=== PATIENT | female | born 1940 | race Hispanic/Latino ===

== ENCOUNTER → 2017-08-02 | Outpatient (CLI) | payer MEDICARE ==
[~2017-08-02] MED LIST: CHOL200013 PO; CYAN1TAB44 PO; GADOBENATE DIMEGLUMINE 10 ML IV ONE; MAG1CAPS5 PO; MAGN500C15 PO; MELO-106 PO; OMEP40CA37 PO; ROSU5TAB18 PO; SIME125C PO
== END | disposition home or self-care (01) ==
LOC: RAH 07:36
PROVIDERS: ATTEND Internal Medicine Gastroenterology
DX: C55 Malignant neoplasm of uterus, part unspecified (principal); K85.90 Acute pancreatitis without necrosis or infection, unspecified; K76.89 Other specified diseases of liver; N28.1 Cyst of kidney, acquired; K80.50 Calculus of bile duct without cholangitis or cholecystitis without obstruction
CPT/HCPCS: 74183; A9577

== ENCOUNTER → 2017-11-04 | Outpatient (CLI) | payer MEDICARE ==
[~2017-11-04] MED LIST changes: -GADOBENATE DIMEGLUMINE 10 ML IV ONE; +ROSU5TAB11 PO; -ROSU5TAB18 PO
== END | disposition home or self-care (01) ==
LOC: RAH 09:57
PROVIDERS: ATTEND Internal Medicine Gastroenterology
DX: K85.90 Acute pancreatitis without necrosis or infection, unspecified (principal); R93.2 Abnormal findings on diagnostic imaging of liver and biliary tract
CPT/HCPCS: 76700

== ENCOUNTER 2018-01-07 07:34 | Day surgery (SDC) | payer MEDICARE ==
[~2018-01-07] VITALS: Ht 152.4 cm; Wt 45.5 kg
[~2018-01-07 07:34] MED LIST changes: -MELO-106 PO; -SIME125C PO; +SODIUM CHLORIDE 0.9% 1000ML 1,000 ML IV ONE
[2018-01-07 08:06] VITALS: BP 98/52
[2018-01-07] MEDS ORDERED: PROPOFOL 10 MG/ML 20ML VIAL IV ONE (09:23)
[2018-01-07 09:41] VITALS: BP 85/35
== END 2018-01-07 10:10 | disposition home or self-care (01) ==
LOC: DAH 07:34 → ENDO 07:34
PROVIDERS: ATTEND Internal Medicine
DX: K31.89 Other diseases of stomach and duodenum (principal); E78.4 Other hyperlipidemia; I10 Essential (primary) hypertension; E78.5 Hyperlipidemia, unspecified; M19.90 Unspecified osteoarthritis, unspecified site; M81.0 Age-related osteoporosis without current pathological fracture; Z90.49 Acquired absence of other specified parts of digestive tract; Z98.49 Cataract extraction status, unspecified eye
CPT/HCPCS: 43237; 93005; A4606; J2704; J7030; 43231

== ENCOUNTER 2018-04-12 17:48 | Inpatient (IN) | payer MEDICARE ==
[~2018-04-12] VITALS: Ht 152.4 cm; Wt 45.9 kg
[~2018-04-12 17:48] MED LIST changes: -SODIUM CHLORIDE 0.9% 1000ML 1,000 ML IV ONE
[2018-04-12 18:50] LABS: CREATININE 0.7 mg/dL (0.5-1.5); POTASSIUM 4.1 mmol/L (3.5-5.1)
[2018-04-12 18:55] LABS: ALBUMIN 3.7 g/dL (3.5-5.0); BILIRUBIN,TOTAL 0.5 mg/dL (0.2-1.0); TOTAL PROTEIN, SERUM 7.3 g/dL (6.0-8.3)
[2018-04-12 19:22] LABS: BASOPHILS % (AUTO) 0.4 % (0.0-5.0); EOSINOPHILS % (AUTO) 0.2 % (0.0-8.0); HEMATOCRIT 38.6 % (36-48); LYMPHOCYTES % (AUTO) 22.8 % (21.0-51.0); MEAN CORPUSCULAR HEMOGLOBIN 25.9 pg (27.0-33.0); MEAN CORPUSCULAR HGB CONC 32.5 g/dL (32.0-36.0); MEAN CORPUSCULAR VOLUME 79.6 fL (79-99); MONOCYTES % (AUTO) 3.4 % (3.0-13.0); NEUTROPHILS % (AUTO) 73.2 % (40.0-77.0); PLATELET COUNT (AUTO) 178 K/uL (130-400); RED BLOOD CELL COUNT(AUTO) 4.85 MIL/uL (4.00-5.50); RED CELL DISTRIBUTION WIDTH 17.1 % (11.0-15.5); WHITE BLOOD COUNT (AUTO) 8.5 K/uL (4.8-10.8)
[2018-04-12] MEDS ORDERED: SODIUM CHLORIDE 0.9% 1000ML 1,000 ML IV ONE ×2 (19:43→22:28)
[2018-04-12] MEDS ORDERED: MORPHINE SULFATE 4 MG/1ML SYG ONE ×2 (19:43→22:29)
[2018-04-12] MEDS ORDERED: ONDANSETRON HCL 4 MG/2 ML VIAL ONE (19:43)
[2018-04-12] MEDS ORDERED: IOHEXOL-350 75 ML VIAL IV ONE (19:49)
[2018-04-12 20:59] LABS: APPEARANCE,URINE Clear (CLEAR); BILIRUBIN,URINE Negative (NEGATIVE); COLOR,URINE Yellow (YELLOW); GLUCOSE, URINE (UA) Negative (NEGATIVE); KETONES,URINE Trace mg/dL (NEGATIVE); LEUKOCYTE ESTERASE ,URINE Small (NEGATIVE); NITRATE,URINE Negative (NEGATIVE); OCCULT BLOOD,URINE Negative (NEGATIVE); PROTEIN,URINE Negative (NEGATIVE); UROBILINOGEN,URINE 0.2 mg/dL (0.2-1.0)
[2018-04-12 21:15] LABS: BACTERIA,URINE None Seen /HPF (None Seen); RBC,URINE None Seen /HPF (0-1); SQUAMOUS EPITHELIAL CELL,UR None Seen /HPF (0-2); WBC,URINE 0-1 /HPF (0-1)
[2018-04-12] MEDS: SODIUM CHLORIDE 0.9% 1000ML 1,000 ML IV SCH (22:00)
[2018-04-12] MEDS ORDERED: ONDANSETRON HCL 4 MG/2 ML VIAL IVP PRN (22:00)
[2018-04-12] MEDS ORDERED: MORPHINE SULFATE 4 MG/1ML SYG IVP PRN (22:00)
[2018-04-12] MEDS ORDERED: SODIUM CHLORIDE 0.9% 10 ML VIAL IVP PRN (22:00)
[2018-04-13] VITALS (7 sets, daily range): BP systolic 109–135; BP diastolic 51–71
[2018-04-13 04:55] LABS: BASOPHILS % (AUTO) 0.3 % (0.0-5.0); HEMATOCRIT 37.5 % (36-48); LYMPHOCYTES % (AUTO) 12.2 % (21.0-51.0); MEAN CORPUSCULAR HEMOGLOBIN 25.8 pg (27.0-33.0); MEAN CORPUSCULAR HGB CONC 32.5 g/dL (32.0-36.0); MEAN CORPUSCULAR VOLUME 79.4 fL (79-99); MONOCYTES % (AUTO) 3.6 % (3.0-13.0); NEUTROPHILS % (AUTO) 83.9 % (40.0-77.0); PLATELET COUNT (AUTO) 170 K/uL (130-400); RED BLOOD CELL COUNT(AUTO) 4.72 MIL/uL (4.00-5.50); RED CELL DISTRIBUTION WIDTH 17.3 % (11.0-15.5); WHITE BLOOD COUNT (AUTO) 11.1 K/uL (4.8-10.8)
[2018-04-13 05:13] LABS: ALBUMIN 3.2 g/dL (3.5-5.0); BILIRUBIN,TOTAL 0.7 mg/dL (0.2-1.0); CREATININE 0.7 mg/dL (0.5-1.5); POTASSIUM 3.9 mmol/L (3.5-5.1); TOTAL PROTEIN, SERUM 6.4 g/dL (6.0-8.3)
[2018-04-13] MEDS: SODIUM CHLORIDE 0.9% 1000ML 1,000 ML IV SCH (06:08)
[2018-04-13] MEDS ORDERED: KETOROLAC TROMETHAMINE 15MG/ML IV PRN (12:45)
[2018-04-13] MEDS: DEXTROSE 5 %-0.45 % NACL 1,000 ML IV SCH ×2 (13:35→23:45)
[2018-04-13] MEDS ORDERED: FAMOTIDINE/PF 20 MG/2 ML VIAL IV ONE (19:25)
[2018-04-13] MEDS: FAMOTIDINE/PF 20 MG/2 ML VIAL IV SCH (19:37)
[2018-04-14 03:27] VITALS: BP 105/59
[2018-04-14 04:52] LABS: HEMATOCRIT 37.3 % (36-48); MEAN CORPUSCULAR HEMOGLOBIN 25.1 pg (27.0-33.0); MEAN CORPUSCULAR HGB CONC 31.6 g/dL (32.0-36.0); MEAN CORPUSCULAR VOLUME 79.6 fL (79-99); NUCLEATED RED BLOOD CELLS 0.1 % (0.0-0.19); PLATELET COUNT (AUTO) 152 K/uL (130-400); RED BLOOD CELL COUNT(AUTO) 4.68 MIL/uL (4.00-5.50); RED CELL DISTRIBUTION WIDTH 17.7 % (11.0-15.5); WHITE BLOOD COUNT (AUTO) 7.2 K/uL (4.8-10.8)
[2018-04-14 05:03] LABS: ALBUMIN 2.7 g/dL (3.5-5.0); BILIRUBIN,TOTAL 0.7 mg/dL (0.2-1.0); CREATININE 0.7 mg/dL (0.5-1.5); POTASSIUM 3.5 mmol/L (3.5-5.1)
[2018-04-14] MEDS: DEXTROSE 5 %-0.45 % NACL 1,000 ML IV SCH ×2 (07:45→16:44)
[2018-04-14 08:00] VITALS: BP 90/52
[2018-04-14] MEDS ORDERED: TRAM50TA4 PO (08:57)
[2018-04-14] MEDS: FAMOTIDINE/PF 20 MG/2 ML VIAL IV SCH ×2 (10:38→20:22)
[2018-04-14 11:00] VITALS: BP 117/62
[2018-04-14 16:00] VITALS: BP 101/58
[2018-04-14] MEDS ORDERED: POTASSIUM CHLORIDE 20 MEQ ERTAB PO PRN (18:15)
[2018-04-14] MEDS ORDERED: LIDOCAINE HCL-MPF 1% 2ML VIAL IVP PRN ×2 (18:15)
[2018-04-14] MEDS ORDERED: POTASSIUM CHLORIDE 10MEQ/100ML 100 ML IV PRN (18:15)
[2018-04-14] MEDS ORDERED: POTASSIUM CHLORIDE 20MEQ/100ML 100 ML IV PRN (18:15)
[2018-04-14] MEDS ORDERED: POTASSIUM CHLORIDE 10% ELIXIR 20 MEQ/15 ML UDCUP PO PRN (18:15)
[2018-04-14 19:20] VITALS: BP 124/67
[2018-04-14 23:05] VITALS: BP 97/46
[2018-04-15] MEDS: DEXTROSE 5 %-0.45 % NACL 1,000 ML IV SCH ×4 (00:21→20:23)
[2018-04-15 03:20] VITALS: BP 109/46
[2018-04-15 07:38] VITALS: BP 104/66
[2018-04-15] MEDS: FAMOTIDINE/PF 20 MG/2 ML VIAL IV SCH ×2 (09:41→20:23)
[2018-04-15 11:48] VITALS: BP 101/48
[2018-04-15 16:00] VITALS: BP 104/64
[2018-04-15 19:40] VITALS: BP 133/71
[2018-04-15 23:35] VITALS: BP 116/58
[2018-04-16 03:44] LABS: BASOPHILS % (AUTO) 0.3 % (0.0-5.0); EOSINOPHILS % (AUTO) 1.1 % (0.0-8.0); HEMATOCRIT 34.3 % (36-48); LYMPHOCYTES % (AUTO) 38.5 % (21.0-51.0); MEAN CORPUSCULAR HEMOGLOBIN 25.5 pg (27.0-33.0); MEAN CORPUSCULAR VOLUME 79.6 fL (79-99); MONOCYTES % (AUTO) 7.4 % (3.0-13.0); NEUTROPHILS % (AUTO) 52.7 % (40.0-77.0); NUCLEATED RED BLOOD CELLS 0.1 % (0.0-0.19); PLATELET COUNT (AUTO) 155 K/uL (130-400); RED CELL DISTRIBUTION WIDTH 17.2 % (11.0-15.5)
[2018-04-16 03:57] LABS: CREATININE 0.7 mg/dL (0.5-1.5)
[2018-04-16 04:00] VITALS: BP 118/60
[2018-04-16 07:54] VITALS: BP 121/53
[2018-04-16] MEDS: FAMOTIDINE/PF 20 MG/2 ML VIAL IV SCH (08:24)
[2018-04-16 11:28] VITALS: BP 103/56
[2018-04-16] MEDS ORDERED: MAG HYDROX/AL HYDROX/SIMETH ES 30 ML SUSP UDCUP PO STA (15:49)
== END 2018-04-16 16:20 | disposition home or self-care (01) | DRG 440 ==
LOC: EDH 17:48 → EDHIP 21:45 → 4BH 04-13 00:10
PROVIDERS: ADMIT Hospitalist; ATTEND Hospitalist
DX: K85.90 Acute pancreatitis without necrosis or infection, unspecified (principal); E78.5 Hyperlipidemia, unspecified; K75.9 Inflammatory liver disease, unspecified; K21.9 Gastro-esophageal reflux disease without esophagitis; G89.29 Other chronic pain; R53.81 Other malaise; M81.0 Age-related osteoporosis without current pathological fracture; N28.1 Cyst of kidney, acquired; Z98.49 Cataract extraction status, unspecified eye; Z90.49 Acquired absence of other specified parts of digestive tract; Z82.49 Family history of ischemic heart disease and other diseases of the circulatory system; Z83.3 Family history of diabetes mellitus; Z84.89 Family history of other specified conditions
CPT/HCPCS: 36415; 74177; 76700; 80048; 80053; 81001; 82150; 82948; 83690; 84478; 84484; 85025; 85027; 93005; J1885; J2270; J2405; J3490; J7030; J7042; Q2038; Q9967